=== PATIENT | male | born 1985 | race Caucasian/White ===

== ENCOUNTER 2019-10-01 13:40 | Emergency (ER) | payer BC ==
[~2019-10-01] VITALS: Ht 182.9 cm; Wt 87.5 kg
[2019-10-01] MEDS ORDERED: PREGABALIN225 MG PO (13:50)
== END 2019-10-01 14:45 | disposition home or self-care (01) ==
LOC: ED 13:40
DX: S61.511A Laceration without foreign body of right wrist, initial encounter (principal); X58.XXXA Exposure to other specified factors, initial encounter
CPT/HCPCS: 12001; 99282-25